=== PATIENT | female | born 1960 | race Caucasian/White ===

== ENCOUNTER 2021-03-17 18:49 | Inpatient (IN) | payer OTHER ==
[~2021-03-17] VITALS: Ht 167.6 cm; Wt 119.3 kg
--- NOTE | ~2021-03-17 | PROC ---
[address] [address] PROCEDURE REPORT Name: ELI HOUSE Room: [address] IN M.R.#: [id number] Admission: 03/18/21 Attend Phys: Sherry Diaz Discharge: Date of : 62 Report #: [id number] THIS REPORT FOR: cc: Redd Maria MD, Michael S. MD [facility],Medical Records Staff ~ For GI report, please see the Provation report in Perceptive 7 content. By: [id number] Records Staff [facility] /NATHALIE
[2021-03-17 18:57] VITALS: BP 172/88
[2021-03-17] MEDS ORDERED: COZAAR 25 MG TA25 MG PO (20:03)
[2021-03-17] MEDS ORDERED: GLIMEPIRIDE1 MG PO (20:03)
[2021-03-17] MEDS ORDERED: SPIRONOLACTONE25 MG PO (20:04)
[2021-03-17] MEDS ORDERED: LIPITOR40 MG PO (20:04)
[2021-03-17 20:45] LABS: ABSOLUTE BASOPHILS 0.1 thou/uL (0.0-0.2); ABSOLUTE LYMPHOCYTES 1.4 thou/uL (0.8-5.3); ABSOLUTE MONOCYTES 0.4 thou/uL (0.0-1.2); ABSOLUTE NEUTROPHILS 9.4 thou/uL (1.6-8.1); BASOPHILS 0.6 %; EOSINOPHILS 0.4 %; HEMATOCRIT 38.5 % (37.0-47.0); HEMOGLOBIN 12.7 gm/dL (12.0-15.0); LYMPHOCYTES 12.5 %; MCH 28.5 pg (26.0-34.0); MCHC 32.9 g/dL (28.0-37.0); MCV 86.5 fL (80.0-100.0); MONOCYTES 3.3 %; MPV 9.3 fl. (7.2-11.1); NUCLEATED RBCS 0 /100WBC; PLATELET COUNT* 160 thou/uL (150-400); POLYS 83.2 %; RBC 4.45 mil/uL (4.20-5.00); RDW-CV 13.9 % (10.5-14.5); WBC 11.3 thou/uL (4.0-11.0)
[2021-03-17 21:06] LABS: CALCIUM 9.1 mg/dL (8.5-10.1); CREATININE 1.1 mg/dL (0.6-1.3); POTASSIUM 4.8 mmol/L (3.5-5.1)
[2021-03-17 21:10] LABS: ALBUMIN 4.3 g/dL (3.4-5.0); TOTAL BILIRUBIN 0.5 mg/dL (<0.1-1.0)
[2021-03-17 22:13] LABS: URINE BILIRUBIN NEGATIVE (Negative); URINE BLOOD NEGATIVE (Negative); URINE CLARITY CLEAR; URINE COLOR YELLOW; URINE GLUCOSE-RANDOM TRACE (Negative); URINE KETONES 1+ (Negative); URINE LEUKOCYTES-REFLEX NEGATIVE (Negative); URINE NITRITE-REFLEX NEGATIVE (Negative); URINE PROTEIN TRACE (Negative); URINE SPECIFIC GRAVITY >= 1.030 (1.005-1.030); URINE UROBILINOGEN 0.2 E.U./dl (0.2-1.0)
[2021-03-17 22:23] LABS: APTT 23.4 Seconds (25.0-31.3); PROTIME 10.9 Seconds (9.20-11.50)
[2021-03-17 23:39] VITALS: BP 110/56
[2021-03-18] VITALS (7 sets, daily range): BP systolic 116–137; BP diastolic 57–90
[2021-03-18] MEDS ORDERED: QUESTRAN PACKET4 GM PO (08:45)
[2021-03-18] MEDS ORDERED: JANUVIA100 MG PO (08:47)
--- NOTE | 2021-03-18 11:14 | 2DMMODE ---
[place] [address] 2 D/M-MODE ECHOCARDIOGRAM Name: ELI HOUSE Rohith Room: [address] ADM IN .Rohith.#: [id number] Admission: 03/18/21 Attend Phys: Konstantin Farias Discharge: Date of : 62 Date of Service: 03/18/21 1114 Report #: [id number] THIS REPORT FOR: cc: Redd Maria MD, Michael S. MD Liston, Michael J. MD [facility] ~ APPROVED REPORT Study performed: 03/18/2021 09:44:47 EXAM: Comprehensive 2D, Doppler, and color-flow Echocardiogram Patient Location: In-Patient Room #: 230 Status: routine BSA: 2.21 HR: 72 bpm BP: 137/60 mmHg Rhythm: NSR Indications Abnormal ECG 2D Dimensions IVSd: 10.75 (7-11mm) LVOT Diam: 20.90 (18-24mm) LVDd: 51.28 mm PWd: 10.73 (7-11mm) Ascending Ao: 37.53 (22-36mm) LVDs: 38.61 (25-40mm) Aortic Root: 28.54 mm Volumes Left Atrial Volume (Systole) LA ESV Index: 44.90 mL/m2 Aortic Valve AoV Peak Tapan.: 1.55 m/s AO Peak Gr.: 9.64 mmHg LVOT Max P.36 mmHg AO Mean Gr.: 5.36 mmHg LVOT Mean P.66 mmHg LVOT Max V: 0.92 m/s AO V2 VTI: 31.06 cm LVOT Mean V: 0.60 m/s ROGE (VTI): 2.27 cm2 LVOT V1 VTI: 20.56 cm TDI Medial E' Tapan.: 0.07 m/s Lateral E' Tapan.: 0.00 m/[place] [address] 2 D/M-MODE ECHOCARDIOGRAM Name: CHRISSHalELI R Room: [address] IN [facility].#: [id number] Admission: 03/18/21 Attend Phys: Konstantin Farias Discharge: Date of : 62 Date of Service: 03/18/21 1114 Report #: [id number] Pulmonary Valve PV Peak Tapan.: 1.02 m/s PV Peak Gr.: 4.17 mmHg Left Ventricle The left ventricle is normal size. There is normal LV segmental wall motion. There is normal left ventricular wall thickness. Left ventricular systolic function is normal. LVEF is 55-60%. This study is not technically sufficient to allow evaluation of the LV diastolic function due to atrial fibrillation. Right Ventricle Right ventricle is mildly dilated. The right ventricular systolic function is normal. Atria Left atrium is moderately dilated. Right atrium is moderately dilated. Aortic Valve The aortic valve is normal in structure. No aortic regurgitation is present. There is no aortic valvular stenosis. Mitral Valve The mitral valve is normal in structure. Trace mitral regurgitation. No evidence of mitral valve stenosis. Tricuspid Valve The tricuspid valve is normal in structure. Trace tricuspid regurgitation. Unable to assess PA pressure. Pulmonic Valve The pulmonary valve is normal in structure. Trace pulmonic regurgitation. Great Vessels The aortic root is normal in size. IVC is normal in size and collapses >50% with inspiration. Pericardium There is no pericardial effusion. <Conclusion> The left ventricle is normal size. There is normal left ventricular wall thickness. Left ventricular [place] [address] 2 D/M-MODE ECHOCARDIOGRAM Name: CHRISSHalELI R Room: [address] IN [facility].#: [id number] Admission: 03/18/21 Attend Phys: Konstantin Farias Discharge: Date of : 62 Date of Service: 03/18/21 1114 Report #: [id number] LVEF is 55-60%. This study is not technically sufficient to allow evaluation of the LV diastolic function due to atrial fibrillation. There is normal LV segmental wall motion. Right ventricle is mildly dilated. Left atrium is moderately dilated. Right atrium is moderately dilated. Trace mitral regurgitation. Trace tricuspid regurgitation. Unable to assess PA pressure. IVC is normal in size and collapses >50% with inspiration. <ELECTRONICALLY SIGNED> By: Redd Beyer MD, FACC 03/18/21 1114 1114 111 Redd Beyer MD, FACC /INF
--- NOTE | 2021-03-18 11:27 | NUR ---
RECIEVED REPORT FROM ESPERANZA RN IN OVERNIGHT CASHIER OF EXPECTED ADMISSION AT 0707- DX: A FLUTTER WITH TEMP PACEMAKER NOTED TO BE PLACED- PT ARRIVED TO ROOM 230 VIA BED AT 0710- COATER SMOKING PIPE PLACED ORDERED AND NOTED TO BE V-PACED WITH TEM PACER, UNDERLYING RYTHUM NOTED TO BE A FLUTTER WITH REPORTED JUNCTIONAL- PACER AT 10 AMPS AND PACED AT 60 AT TIME OF ADMISSION; HAS SINCE HAD PACE DECREASED TO 40 PER TO FURTHER EVAL FOR NEEDED PACEMAKER-IMMOBILIZTION OF RLE INSTRUCTIONS GIVEN- PT A&O X4- CONT OF B/B, PUREWICK IN PLACE INDICATED AT THIS TIME- RIGHT GROIN SIGHT NOTED WITH C/D/I DRESSING AND NO HEMATOMA NOTED- IV NOTED TO LEFT AC INTACT, IVF INFUSSING PRESCRIBED- Q1 HOUR GROIN CHECKS IN PLACE INDICATED- MORPHINE X1 GIVEN AT 0821 R/T C/O PAIN TO LUQ 7/10; PT REPORTS MEDICATION TO BE EFFECTIVE- GI COCKTAIL ORDERED AND GIVEN PRESCRIBED- ZOFRAN PRN AT 1015 R/T NAUSEA- PT CURRENLTY NPO FOR POSSIBLE PACEMAKER PLACEMENT- PULM AND UROLOGY CONSULTS NOTED- ECHO ORDERED AND COMPLETED WITH LVEF NOTED AT 55-60%- PT DENIES ANY OPEN WOUNDS/SOARS- AT SIDE- CALL LIGHT AND PERSONAL BELONGINGS WITH IN REACH- HOURLY ROUNDS IN PLACE R/T SAFETY/NEEDS- ALL NEEDS MET AT THIS TIME
--- NOTE | 2021-03-18 16:13 | EKG ---
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 : 1960 Requested By: Dawn Alicea Order Number: [id number] MD: Steve Jeffery Measurements Intervals [place] Rate: 64 P: WA: QRS: -77 QRSD: 149 T: 98 QT: 490 QTc: 506 Interpretive Statements Atrial fibrillation with a mildly bradycardic ventricular response Nonspecific IVCD compatible with an atypical left bundle branch block Baseline wander in lead(s) II,III,aVF No previous ECG available for comparison Electronically Signed On 03-18-2021 16:13:35 CDT by Steve Jeffery [email or web address] <ELECTRONICALLY SIGNED> By: Steve Jeffery MD, FAC 03/18/21 1613 51 51 Steve Jeffery MD, [facility] /EPI
--- NOTE | 2021-03-18 16:19 | EKG ---
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: SJ : 1960 Requested By: Redd Beyer Order Number: [id number] Beatris MD: Steve Jeffery Measurements Intervals [place] Rate: 70 P: CT: QRS: -67 QRSD: 148 T: 123 QT: 463 QTc: 500 Interpretive Statements Atrial fibrillation Nonspecific IVCD with LAD consistent with an atypical left bundle branch block Compared to ECG 03/17/2021 18:52:08 No significant changes Electronically Signed On 03-18-2021 16:19:18 CDT by Steve Jeffery [email or web address] <ELECTRONICALLY SIGNED> By: Steve Jeffery MD, [facility] 03/18/21 1619 Steve Jeffery MD, [facility] /EPI
--- NOTE | 2021-03-18 16:31 | CON ---
[address] [address] CONSULTATION Name: ELI HOUSE Room: [place] [address] ADM IN M.R.#: [id number] Admission: 03/18/21 Attend Phys: Sherry Diaz Discharge: Date of : 62 Report #: [id number] THIS REPORT FOR: cc: Redd Maria MD, Michael S. MD Liston, Michael J. MD [facility] ~ cc: Redd Maria MD DATE OF CONSULTATION: 03/18/2021 INDICATION: Bradycardia. HISTORY OF PRESENT ILLNESS: The patient is a 60-year-old white female with no prior cardiac history, who presents to the emergency room with complaints of mid epigastric pain. The patient states the pain began at approximately 6:00 in the evening. The pain is focal and mid epigastric without radiation. The patient denies any nausea or vomiting. She does have some diaphoresis with the discomfort. At the time of interview, she continues to have fairly significant mid epigastric pain. She is not having rebound. She denies any chest pain. She is not having shortness of breath. She is without specific cardiac complaint. PAST MEDICAL HISTORY: 1. Hypertension. 2. Type 2 diabetes mellitus. 3. Dyslipidemia. 4. History of cholecystectomy. 5. Nephrolithiasis. 6. History of follicular lymphoma, in remission since 2014. HOME MEDICATIONS: Losartan 25 mg daily, glimepiride 1 tablet daily, atorvastatin 10 mg at bedtime, spironolactone dose unknown. ALLERGIES: OMNICEF, BENADRYL AND RITUXAN. SOCIAL HISTORY: The patient is a nonsmoker. She does not drink alcohol. She is . Her is with her. FAMILY HISTORY: Noncontributory with the exception of mom has a pacemaker. REVIEW OF SYSTEMS: Positive for abdominal pain with some mild nausea, but no vomiting. She denies diarrhea, constipation, fevers, chills or sweats. A 14-point review of systems otherwise unremarkable. PHYSICAL EXAMINATION: [place] [address] CONSULTATION Name: ELI HOUSE Rohith Room: [address] IN [facility]#: [id number] Admission: 03/18/21 Attend Phys: Sherry Diaz Discharge: Date of : 62 Report #: [id number] VITAL SIGNS: Blood pressure 110/56, pulse ranging from the 30s to the 50s and irregular. GENERAL: Mildly obese white female who appears to be in mild distress. HEENT: Head is normocephalic, atraumatic. Extraocular muscles intact. The patient is wearing glasses. Mucous membranes are moist. NECK: Shows no obvious jugular venous distention. There are no carotid bruits. CHEST: Reveals clear lung willson. CARDIAC: Reveals an irregularly irregular rhythm with intermittent bradycardia. I do not appreciate obvious gallop, murmur or rub. ABDOMEN: Reveals a protuberant abdomen with mild generalized tenderness without rebound. Bowel sounds present. EXTREMITIES: Shows no significant edema. SKIN: Dry. IMAGING: A 12-lead EKG shows what appears to be an atrial flutter with slow ventricular response rate and a left bundle branch block. Chest x-ray shows mild cardiomegaly, but is otherwise clear. Abdominal films show some distention of the stomach, but no evidence of obstruction and no significant bowel gas pattern. CTA of the chest shows no obvious dissection. LABORATORY DATA: Reviewed. Troponins are unremarkable x 3 sets. Serum glucose is 338. IMPRESSION AND RECOMMENDATIONS: 1. Bradycardia due to atrial flutter with a slow ventricular response rate. A temporary pacemaker will be placed. Echocardiogram ordered and pending. 2. Midepigastric discomfort. Etiology is not clear at this point in time. The patient does not have rebound tenderness. Bowel sounds are present. Continue supportive care at this point in time. 3. Hypertension, presently stable. 4. Dyslipidemia. The patient on statin agent. 5. Type 2 diabetes mellitus per hospitalist. <ELECTRONICALLY SIGNED> By: Redd Beyer MD, FACC 03/18/21 1631 2334 0000Micstefany Beyer MD, FACC /nt
[2021-03-18 17:13] LABS: HEMOGLOBIN 12.5 gm/dL (12.0-15.0); MCH 28.5 pg (26.0-34.0); MCHC 32.7 g/dL (28.0-37.0); MCV 87.1 fL (80.0-100.0); MPV 8.9 fl. (7.2-11.1); NUCLEATED RBCS 0 /100WBC; PLATELET COUNT* 180 thou/uL (150-400); RBC 4.37 mil/uL (4.20-5.00); RDW-CV 14.5 % (10.5-14.5); WBC 11.6 thou/uL (4.0-11.0)
[2021-03-18 17:30] LABS: CALCIUM 8.2 mg/dL (8.5-10.1); CREATININE 1.2 mg/dL (0.6-1.3)
[2021-03-18 17:34] LABS: ALBUMIN 3.9 g/dL (3.4-5.0); TOTAL BILIRUBIN 0.6 mg/dL (<0.1-1.0); TOTAL PROTEIN 7.2 g/dL (6.4-8.2)
[2021-03-18 17:40] LABS: ABSOLUTE LYMPHOCYTES 1.4 thou/uL (0.8-5.3); ABSOLUTE MONOCYTES 0.7 thou/uL (0.0-1.2); ABSOLUTE NEUTROPHILS 9.5 thou/uL (1.6-8.1)
--- NOTE | 2021-03-18 17:40 | NUR ---
ASSUMED PT CARE AT 1300. RECEIVED REPORT FROM ALBERT VERMA. PT TRANSFERRED FROM ROOM 230 IN STABLE CONDITION PER BED ACCOMPANIED BY 2 RNS. MONITOR ON AT ALL TIMES WITH TRANSFER. MONITOR SHOWING AFIB C OCCASIONAL PACED BEATS UPON ARRIVAL TO PACU. TEMPORARY PACEMAKER IN PLACE R GROIN C MA SET AT 10 WITH VENTRICULAR RATE SET AT 60. MODE VVI. PT KEEPING R LEG STRAIGHT INSTRUCTED, HOB KEPT 10 TO 15 DEGREES. PT A/O X 4. O2 ON AT 2L/NC. 1/2 NS INFUSING AT 125 ML/HR PER R AC 20 GAUGE IV. ABLE TO DOPPLER PEDAL AND POST TIBIAL PULSES BILATERAL LOWER EXTREMETIES. DR. MEDINA HERE AT AROUND 1400 TO EXAMINE PT. HE DISCUSSED WITH PT AND ABOUT PLACING PERMANENT PACEMAKER TODAY. DR. MEDINA DECREASED RATE TO 50. DR. MEDINA HERE AGAIN AT 1530 TO EXAMINE PT. HE DISCUSSED WITH PT AND SO THAT HE DIDN'T THINK PT NEEDED PPM. PT AND SO VERBALIZED UNDERSTANDING. AT 1550, MONITOR SHOWING FREQUENT VENTRICULAR PACED BEATS. STRIP RECORDED. DR. MEDINA CALLED AND HE CAME OVER TO EXAMINE PT. HE STILL THOUGHT PT DID NOT NEED PPM AT THIS TIME AND THAT AFIB NEEDED TO BE ADDRESSED FIRST. DR. MEDINA DECREASED MA TO 40. DR. MEDINA ORDERED TO KEEP TEMPORARY PACEMAKER IN UNTIL AFTER EGD DUE TO POSSIBILITY OF BRADYCARDIA DUE TO MEDS GIVEN DURING EGD. REPORTED THIS TO [employer] SECURITY ARCHITECT TEAM. DR. POLLACK HERE AT [address] POLLACK WANTED TO KEEP PT NPO AND DO EGD. PREOP CHECKLIST STARTED AND COMPLETED. PT C/O UPPER MIDDLE ABDOMINAL PAIN AT 1545 AND RATING 7. PT GIVEN MORPHINE 2MG IV AT 1550. PT REPORTED PAIN INCREASING AGAIN AT 1700. THIS REPORTED TO DR. POLLACK AND HE SAID PT COULD NOT HAVE MORE PAIN MEDS AT THIS TIME DUE TO UPCOMING EGD. PT TRANSFERRED TO OR AT THIS TIME IN STABLE CONDITION ACCOMPANIED BY DR. LUKE AND ALBERT ARGUELLES FOR EGD.
[2021-03-18 17:41] LABS: PLATELET ESTIMATE ADEQUATE
--- NOTE | 2021-03-18 19:45 | NUR ---
ASSUMED PT CARE AGAIN AT 1914. PT FULLY RECOVERED FROM EGD. RIGHT GROIN SITE REMAINS SOFT, INTACT S BLEEDING NOR S/S OF INFECTION. PT KEEPING R LEG STRAIGHT. HOB 30 DEGREES ORDERED AND PT ABLE TO GET UP AT 0. PT TRANSFERRED TO RM 230 IN STABLE CONDITION PER BED AT 1930 ACCOMPANIED BY 2 RNS. BELONGINGS SENT C PT. REPORT GIVEN TO ALBERT SHEPHERD AND SHE ASSUMED PT CARE AT THIS TIME. IV FLUIDS RESTARTED OF 1/2 NS AT 125 ML/HR. PT TAKING PO LIQUIDS WELL. BOXED LUNCH GIVEN TO PT BUT SHE DOES NOT FEEL LIKE EATING YET.
[2021-03-19 00:25] VITALS: BP 148/64
--- NOTE | 2021-03-19 04:16 | NUR ---
PT TRANSFERRED TO 230 AT 1945. RECEIVED REPORT FROM MEDICARE NURSE. PT A&OX4. VSS. PHYSICAL ASSESSMENT COMPLETED AND CHARTED. PT ON O2 AT 2L NC/CPAP AT HS. PT TRACING AFIB/BBB/JESSICA ON TELE. RIGHT GROIN DRESSING C/D/I. PT COMPLAINED OF EPIGASTRIC PAIN-MED GIVEN PER SEP. PT UPSTANDBY TO RESTROOM. CALL LIGHT WITHIN REACH.
[2021-03-19 04:48] VITALS: BP 104/56
[2021-03-19 05:58] LABS: ABSOLUTE LYMPHOCYTES 0.8 thou/uL (0.8-5.3); ABSOLUTE MONOCYTES 0.6 thou/uL (0.0-1.2); ABSOLUTE NEUTROPHILS 10.8 thou/uL (1.6-8.1); BASOPHILS 0.3 %; HEMATOCRIT 36.5 % (37.0-47.0); LYMPHOCYTES 6.7 %; MCH 28.6 pg (26.0-34.0); MCHC 32.8 g/dL (28.0-37.0); MCV 87.3 fL (80.0-100.0); MONOCYTES 5.1 %; MPV 9.6 fl. (7.2-11.1); NUCLEATED RBCS 0 /100WBC; PLATELET COUNT* 156 thou/uL (150-400); POLYS 87.9 %; RBC 4.18 mil/uL (4.20-5.00); RDW-CV 14.1 % (10.5-14.5); WBC 12.2 thou/uL (4.0-11.0)
[2021-03-19 06:17] LABS: ALBUMIN 3.5 g/dL (3.4-5.0); CALCIUM 8.1 mg/dL (8.5-10.1); CREATININE 0.9 mg/dL (0.6-1.3); POTASSIUM 4.6 mmol/L (3.5-5.1); TOTAL BILIRUBIN 0.7 mg/dL (<0.1-1.0); TOTAL PROTEIN 6.7 g/dL (6.4-8.2)
[2021-03-19 08:00] VITALS: BP 127/66
--- NOTE | 2021-03-19 10:35 | NUR ---
CM COMPLETED THE INITIAL ASSESSMENT TO DISCUSS D/C PLANNING. PT LIVES WITH SPOUSE WHO WAS AT BEDSIDE. PT HAD TEMP PACEMAKER REMOVED YESTERDAY, S/P GI SCOPE ULCER WERE FOUND ON ESOPHAGUS. PT IS ACTIVE, AND EMPLOYEED. PT DOESNT USE ANY DMES. PT DENIES HX SNF OR HH. CARDIO TO START BLOOD THINNER, XALRETO. CM TO CHECK PUGA AND NOTIFY PT OF COST.
[2021-03-19 12:00] VITALS: BP 114/58
--- NOTE | 2021-03-19 12:23 | NUR ---
Case and plan of care reviewed with MD each weekday during patient's length of stay. Continue plan of care per MD orders for current dx. Pacemaker removal 03/18 EGD 03/18. Possible dc 03/20/21 after GI clears, Cardiology ok Dc today Dr Beyer noted Xeralto 20mg po QD at discharge. No script on chart and spoke to pt who stated was not given script. Called [facility] [address] [phone] request cost quote for medication as 30 day supply. Will call back and obtain cost in few hours. CM will continue to follow for any further discharge needs.
--- NOTE | 2021-03-19 12:31 | CON ---
[address] [address] CONSULTATION Name: ELI HOUSE Room: [address] IN M.R.#: [id number] Admission: 03/18/21 Attend Phys: Sherry Diaz Discharge: Date of : 62 Report #: [id number] THIS REPORT FOR: cc: Redd Maria MD,Israel Carlson MD, DO ~ cc: Redd Beyer MD, Redd Maria MD, Brian Reina MD DATE OF CONSULTATION: 03/18/2021 GASTROENTEROLOGY CONSULTATION REFERRING PHYSICIAN: Dr. Beyer. REASON FOR CONSULTATION: Epigastric pain. IMPRESSION: 1. Epigastric pain of uncertain etiology with history of nonsteroidal use and remote history of gallstones -- evaluate for disease versus less likely choledocholithiasis or sphincter of Oddi dysfunction. 2. Abnormal CAT scan suggestive of a nodular-appearing liver with risk factors for nonalcoholic fatty liver including hyperlipidemia, diabetes and obesity. 3. Status post laparoscopic cholecystectomy back in 1993 for multiple gallstones. 4. History of follicular lymphoma, for which the patient has undergone chemotherapy for the same. 5. Slow atrial fibrillation with placement of a temporary pacemaker at this time. 6. Post-cholecystectomy diarrhea, for which the patient is on cholestyramine for the same with recent colonoscopy being performed by Dr. Reina revealing a couple of small polyps. RECOMMENDATIONS: 1. The patient appears to be hemodynamically stable to undergo an upper endoscopy. We will proceed with an upper endoscopy today. I have discussed the patient's case with Dr. Beyer as well and he is agreeable for us to proceed. 2. I have also discussed the patient's case with her anesthesiologist, Dr. Graham Tapia, and we will bring the OR crew in now to do this procedure since it will be close to 24 hours before we could attempt to do it tomorrow. 3. If the EGD is unrevealing, I will get her set up for an MRCP to be done tomorrow to ensure that she does not have any junk or debris within her bile duct since her pain seems somewhat similar to the pain she had when she had her gallstones. 4. I have discussed the plans with the patient as well as her and they are [place] [address] CONSULTATION Name: ELI HOUSE Room: [address] IN [facility]#: [id number] Admission: 03/18/21 Attend Phys: Sherry Diaz Discharge: Date of : 62 Report #: [id number] HISTORY OF PRESENT ILLNESS: The patient is a very pleasant 60-year-old white female who was brought to the hospital because of rather severe epigastric pain that began in epigastric area and radiated off to side with associated nausea, sweating, and a vasovagal type reaction. She denies any complaints normally referable to her upper or lower GI tract other than bile acid diarrhea, for which she is on cholestyramine for the same. She denies any dysphagia, odynophagia, chronic reflux or indigestion. She does take ibuprofen usually 2 tablets daily at night to help with sleep. She has no prior history of peptic ulcer disease in the past. She has undergone an upper endoscopy in the past, but it has been years. She recently underwent a full colonoscopy with Dr. Reina, which was revealing for a couple of polyps. She denies any nausea/vomiting, hematemesis, melena or hematochezia. She has not had any associated weight loss. Because of issues related to her heart rhythm, a temporary pacemaker was placed and it is still in place at this time. She was seen in consultation by Dr. eByer who consulted us for further evaluation and treatment. ALLERGIES: CEFDINIR, BENADRYL, AND RITUXAN. MEDICATIONS: Include losartan, glimepiride, spironolactone, atorvastatin, Januvia, and ibuprofen. PAST MEDICAL HISTORY: Remarkable for hypertension, hyperlipidemia, diabetes. She has a history of problems with anxiety and anxiety attacks in the past, history of follicular lymphoma for which she was seen and taken care of by and has been in remission since 2015. She has had previous cholecystectomy. She is up to date with her colonoscopy as well. SOCIAL HISTORY: The patient is . She does not smoke or drink. FAMILY HISTORY: Negative. REVIEW OF SYSTEMS: Negative for any issues related to her liver including previous hepatitis with jaundice, family history of liver disease, history of previous transfusions or history of drug use. PHYSICAL EXAMINATION: GENERAL: Revealed anxious 60-year-old white female who is awake and alert. HEART: Her cardiopulmonary examination revealed a regular rhythm. LUNGS: Clear. ABDOMEN: Soft. She is mildly tender in epigastrium. No rebound or guarding was noted. [address] [address] CONSULTATION Name: ELI HOUSE Room: [address] IN [place].#: [id number] Admission: 03/18/21 Attend Phys: Sherry Diaz Discharge: Date of : 62 Report #: [id number] LABORATORY TESTS: From last night revealed a white count of 11.3, hemoglobin 12.7, platelet count 160,000. MCV is 86.5 and RDW is 13.9. Differential is normal. Her troponin was only . Her electrolytes are all within normal limits with a bilirubin of 0.5, alkaline phosphatase 137, AST of 15, ALT 22, and albumin of 4.3. Her lipase is normal. CT scan of the chest, abdomen and pelvis performed this morning revealed mild aneurysmal dilation of the thoracic aorta measuring 3.9 x 3.9 cm without evidence of dissection. No abnormal lymph nodes were noted throughout the mediastinum. Gallbladder is surgically absent. Left kidney is unremarkable. Right kidney demonstrates a contrast enhancing mass in the lower pole of the kidney measuring 2.1 cm and likely renal cell carcinoma. There is also diverticulosis of descending colon and sigmoid colon without diverticulitis. There is some mild periaortic adenopathy. The liver, spleen, pancreas, and adrenal glands are normal in appearance. The remainder of the CT scan was unremarkable. DISCUSSION: At the present time, the patient appears to be hemodynamically stable to undergo endoscopic evaluation. Proceed with upper endoscopy today and make further recommendations thereafter. <ELECTRONICALLY SIGNED> By: Israel Sellers DO 03/19/21 1231 1538 1923Gsaint alphons[facility] center - ontarioDO tawny Villegas
[2021-03-19 16:00] VITALS: BP 129/64
--- NOTE | 2021-03-19 16:59 | NUR ---
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 UP IN CHAIR, ALSO DANGLED OFF SIDE OF BED. TOLERATING DIET WITH NO COMPLAINTS OF NAUSEA. REPORTING LEFT FLANK, BACK AND GENERALIZED DISCOMFORT DURING SHIFT - GIVEN TYLENOL EARLIER TO ASSIST WITH PAIN - REPORTING PARTIAL RELIEF. ALSO, REPORTING HAVING DISCOMFORT IN LEFT UPPER BOTTOM, HIP FROM IM SHOT PREVIOUS RECIEVED IN EARLIER - AREA TENDER TO TOUCH, AK PAD APPLIED PER ORDERS TO ASSIST WITH COMFORT. SOA NOTED WITH ACTIVITY. CALL LIGHT WITHIN REACH. WILL CONTINUE WITH PLAN OF CARE.
[2021-03-19 20:00] VITALS: BP 115/67
--- NOTE | 2021-03-19 22:20 | CON ---
[address] [address] CONSULTATION Name: [facility] Room: [address] IN M.R.#: [id number] Admission: 03/18/21 Attend Phys: Sherry Diaz Discharge: Date of : 62 Report #: [id number] THIS REPORT FOR: cc: Redd Maria MD, Michael S. MD Pervez, Adeel MD ~ DATE OF CONSULTATION: 03/19/2021 Consult has been requested by Dr. Johnston. INDICATION FOR CONSULTATION: Possible chronic obstructive pulmonary disease/possible lung mass. HISTORY OF PRESENT ILLNESS: The patient is a 60-year-old female, who has a history of morbid obesity, body mass index is 41. She does have obstructive sleep apnea as well. She has a remote history of smoking, she discontinued in the . She does not have a previous diagnosis of a cardiac or respiratory disease. She, however, does have a history of lymphoma. At this time, the patient was initially admitted yesterday with epigastric discomfort. The patient is reported to have diaphoresis as well and has been having shortness of breath on exertion, has mild shortness of breath at rest as well. She is reported to be in atrial flutter rhythm. I understand at some point, she has had some bradycardia as well. She denies upper respiratory complaints. She does not have a cough. She says that she raised chest pain on the left side, association with respiration and coughing. She is not complaining of heartburn at this time. She has disturbed sleep at night as well as sleepiness during the day, for which she uses CPAP. These complaints are at baseline. REVIEW OF SYSTEMS: Review of systems for 12 points is negative except as mentioned above. PAST MEDICAL HISTORY: Follicular lymphoma, type 2 diabetes, anxiety, morbid obesity, obstructive sleep apnea, recently diagnosed atrial flutter/fibrillation with current normal rate, without rate control medications. There is a recent echo, which shows a left ventricular ejection fraction of 55-60% without elevation in right heart pressures. SOCIAL HISTORY: There is an extensive history of smoking, which she discontinued in the mid . She had began smoking at the age of 17. Since the mid , she has not been smoking. No known history of heavy alcohol use or illegal drug use. CURRENT MEDICATIONS: [place] [address] CONSULTATION Name: [facility] Rohith Room: [address]#: [id number] Admission: 03/18/21 Attend Phys: Sherry Diaz Discharge: Date of : 62 Report #: [id number] HOME MEDICATIONS: List in [facility] reviewed. FAMILY HISTORY: No pertinent family history. PHYSICAL EXAMINATION: GENERAL: She is alert, awake and oriented, does not appear to be in any distress. VITAL SIGNS: Pulse of 65 and a blood pressure of 114/58. She is saturating 99%. She was not on supplemental oxygen. Respiratory rate was 17-18, afebrile with a temperature of 36.6. HEENT: Normocephalic and atraumatic. Pupils are equal and reactive. There is no throat erythema. Interestingly, her airway is Mallampati class 1. NECK: Does not show raised JVP, asymmetry, mass or lymph nodes. CHEST: Symmetrical expansion on inspection and palpation. On auscultation, breath sounds are bilaterally equal, but decreased. I do not hear any added sounds. HEART: Regular. There is no murmur. ABDOMEN: Soft and nontender. EXTREMITIES: Lower extremities show 1+ edema, no calf tenderness. LABORATORY DATA: The patient had a CTA chest, abdomen and pelvis performed. There are no pulmonary emboli. On my review, there is a small subcentimeter lung nodule in the right lung field. The patient's lab work is in [facility] and this is also reviewed. COVID-19 antigen was negative. ASSESSMENT AND PLAN: 1. Shortness of breath. She has mild shortness of breath at rest as well, but primarily this is on exertion. I feel that primarily this is related to her being overweight. She also appears to be mildly fluid overloaded and has had atrial fibrillation. I do not see any sign of infection at this time, although it is noted that she did not get the COVID-19 vaccine. She has an extensive history of smoking in the past and certainly it will be possible that she has an underlying COPD and/or bronchial asthma. 2. Atrial fibrillation. This is being managed by the Cardiology service. 3. Morbid obesity with obstructive sleep apnea. She may benefit from reevaluation of her CPAP settings as well as another sleep study. If the patient is interested then I will be happy to see her in the office and evaluate further. May also consider an outpatient referral for weight loss surgery if the patient is interested. 4. Lung nodule. On my review, there is a small lung nodule subcentimeter in the right lung field, series 6, image 46. She has had CAT scans in the past. I do not have those available. I recommend comparing with the previous CAT scans and evaluating whether this is a new or old finding. If this finding is new or [address] [place] [address] CONSULTATION Name: [facility] Room: [address] IN [facility].#: [id number] Admission: 03/18/21 Attend Phys: Sherry Diaz Discharge: Date of : 62 Report #: [id number] if previous comparison is not available, then I recommend obtaining a repeat CT chest without contrast in 3-6 months to follow up on this finding. 5. Mild fluid overload. She is ordered Lasix already by the primary service. I agree with the same. 6. History of smoking/possible underlying chronic obstructive pulmonary disease/bronchial asthma. I will go ahead and treat her while she is here with budesonide, Brovana and follow response. If she fails to improve, then the addition of a prednisone taper can also be considered; however, I do not feel strongly about it. Also, I can see her in the office and evaluate this further and also obtain lung function testing. Treating her upon discharge with Advair 250/50 b.i.d. with an albuterol inhaler is an option, but I do not feel strongly about it at this time either. This does not appear to be the primary etiology of her shortness of breath and this can also be evaluated as an outpatient. 7. Edema of lower extremities. For the sake of completion, I will also do venous Dopplers. However, I understand the Cardiology service intends to start Xarelto regardless. We will see her on an as needed basis while she is here. If the patient is interested, I will be happy to see her in the next couple of months in the office and evaluate further. Thanks for this consultation. <ELECTRONICALLY SIGNED> By: Blair Dela Cruz MD 03/19/21 2220 [id number] [id number] Dela Cruz MD /nt
[2021-03-20 01:29] VITALS: BP 121/59
[2021-03-20 04:34] LABS: ALBUMIN 3.6 g/dL (3.4-5.0); CALCIUM 8.6 mg/dL (8.5-10.1); POTASSIUM 4.2 mmol/L (3.5-5.1); TOTAL BILIRUBIN 0.8 mg/dL (<0.1-1.0); TOTAL PROTEIN 7.3 g/dL (6.4-8.2)
[2021-03-20 04:36] LABS: HEMATOCRIT 36.3 % (37.0-47.0); HEMOGLOBIN 12.2 gm/dL (12.0-15.0); MCH 28.8 pg (26.0-34.0); MCHC 33.7 g/dL (28.0-37.0); MCV 85.4 fL (80.0-100.0); MPV 9.3 fl. (7.2-11.1); RBC 4.25 mil/uL (4.20-5.00); RDW-CV 13.7 % (10.5-14.5); WBC 13.6 thou/uL (4.0-11.0)
[2021-03-20 04:48] VITALS: BP 120/61
--- NOTE | 2021-03-20 07:05 | NUR ---
ASSUMED CARE OF PT AFTER REPORT AT 1930. PT A&OX4. VSS. PHYSICAL ASSESSMENT COMPLETED AND CHARTED. PT ON 2LNC/CPAP AT HS. PT TRACING AFIB/BBB/JESSICA ON TELE. PT UPADLIB TO BSC. PT COMPLAINED OF LEFT ABDOMINAL PAIN-MED GIVEN PER MAR. CALL LIGHT WITHIN REACH.
[2021-03-20] MEDS ORDERED: CARAFATE 11 GM/10 M1 PO (10:17)
[2021-03-20] MEDS ORDERED: PROTONIX40 M4 PO (10:17)
[2021-03-20] MEDS ORDERED: XARELTO20 MG PO (10:18)
[2021-03-20] MEDS ORDERED: FUROSEMIDE 40 M40 MG PO (11:11)
[2021-03-20 12:00] VITALS: BP 138/52
[2021-03-20 15:51] VITALS: BP 138/52
--- NOTE | 2021-04-02 17:25 | CARD ---
[address] [address] CARDIAC CATH REPORT Name: [facility] Rohith Room: [address] IN M.R.#: [id number] Admission: 03/18/21 Attend Phys: Sherry Diaz Discharge: 03/20/21 Date of : 62 Report #: [id number] THIS REPORT FOR: cc: Redd Maria MD, Michael S. MD Liston, Michael J. MD [facility] ~ cc: Redd Maria MD DATE OF SERVICE: 03/17/2021 CARDIAC PROCEDURE PROCEDURE: Temporary pacemaker placement. INDICATION: Atrial fibrillation with slow ventricular response. PROCEDURE DESCRIPTION: After informed consent was obtained, the patient was brought to the cardiac catheterization lab. The area of the right groin was prepped and draped in sterile fashion. Local anesthesia was achieved with 1% lidocaine. After a venous sheath was placed using the Seldinger technique, a temporary pacing wire was advanced to secure position within the right ventricle. Thresholds were checked and deemed to be satisfactory. The wire was secured in place. The patient tolerated the procedure well without complication. IMPRESSION: 1. Atrial fibrillation with slow ventricular response rate. 2. Successful temporary pacemaker placement. <ELECTRONICALLY SIGNED> By: Redd Beyer MD, [facility] 04/02/21 1725 0733 [id number] Hospital[facility]arg[facility] Beyer MD, FACC /nt
== END 2021-03-20 16:07 | disposition home or self-care (01) | DRG 308 ==
LOC: M.ERS 18:49 → M.2W 03-18 00:22 → M.TBA-CV 03-18 00:22 → M.2W 03-18 07:46 → M.TBA-CV 03-18 13:04 → M.2W 03-18 19:14
PROVIDERS: Internal Medicine; Internal Medicine Gastroenterology; Personal Emergency Response Attendant; ADMIT Internal Medicine; ATTEND Internal Medicine
PROC: 5A1223Z Performance of Cardiac Pacing, Continuous (ICD-10-PCS; principal; 2021-03-18)
PROC: 0DJ08ZZ Inspection of Upper Intestinal Tract, Via Natural or Artificial Opening Endoscopic (ICD-10-PCS; principal; 2021-03-18)
PROC: 5A09357 Assistance with Respiratory Ventilation, Less than 24 Consecutive Hours, Continuous Positive Airway Pressure (ICD-10-PCS; principal; 2021-03-18)
PROC: 5A09357 Assistance with Respiratory Ventilation, Less than 24 Consecutive Hours, Continuous Positive Airway Pressure (ICD-10-PCS; 2021-03-19)
DX: I44.2 Atrioventricular block, complete (principal); J96.01 Acute respiratory failure with hypoxia; Z68.41 Body mass index [BMI] 40.0-44.9, adult; F41.9 Anxiety disorder, unspecified; E11.9 Type 2 diabetes mellitus without complications; N28.89 Other specified disorders of kidney and ureter; E78.5 Hyperlipidemia, unspecified; I48.92 Unspecified atrial flutter; I10 Essential (primary) hypertension; G47.33 Obstructive sleep apnea (adult) (pediatric); E66.01 Morbid (severe) obesity due to excess calories; K20.90 Esophagitis, unspecified without bleeding; K31.89 Other diseases of stomach and duodenum; K25.9 Gastric ulcer, unspecified as acute or chronic, without hemorrhage or perforation; I71.2 Thoracic aortic aneurysm, without rupture; Z20.822 Contact with and (suspected) exposure to COVID-19; Z79.84 Long term (current) use of oral hypoglycemic drugs; Z85.72 Personal history of non-Hodgkin lymphomas; Z90.49 Acquired absence of other specified parts of digestive tract; Z79.899 Other long term (current) drug therapy; Z88.8 Allergy status to other drugs, medicaments and biological substances